=== PATIENT | male | born 1955 | race Caucasian/White ===

== ENCOUNTER 2017-03-15 04:35 | Inpatient (IN) ==
[2017-03-15] MEDS ORDERED: TICAGRELOR 90 MG TABLET ONE (05:02)
[2017-03-15] MEDS ORDERED: ONDANSETRON 4 MG/2 ML VIAL ONE (05:03)
[2017-03-15] MEDS ORDERED: MORPHINE 2 MG/1 ML SYRINGE IV STA (05:03)
[2017-03-15] MEDS ORDERED: ASPIRIN 325 MG TABLET PO STA (05:03)
[2017-03-15] MEDS ORDERED: HEPARIN 1,000 UNIT/1 ML VIAL IV STA (05:03)
[2017-03-15] MEDS ORDERED: HEPARIN 5,000 UNIT/1 ML VIAL ONE (05:03)
[2017-03-15] MEDS ORDERED: NITROGLYCERIN 2% OINT 1 INCH/GM PACK TOP ONE (05:03)
[2017-03-15] MEDS ORDERED: MORPHINE 2 MG/1 ML SYRINGE ONE (05:03)
[2017-03-15] MEDS ORDERED: NITROGLYCERIN 2% OINT 1 INCH/GM PACK TOP STA (05:03)
[2017-03-15] MEDS ORDERED: ASPIRIN 325 MG TABLET ONE (05:03)
[2017-03-15] MEDS ORDERED: TICAGRELOR 90 MG TABLET PO STA (05:05)
[2017-03-15 05:14] LABS: Basophils # 0.1 10*3/uL (0.0-0.2); Basophils % 0.9 % (0.0-0.8); Eosinophils # 0.2 10*3/uL (0.0-0.87); Eosinophils % 1.5 % (0.00-10.9); Hematocrit 46.6 VOL% (42.0-52.0); Hemoglobin 16.1 GM/DL (14.0-18.0); Immature Granulocytes % 0.5 %; Immature Granulocytes Absolute 0.05 #; Lymphocytes % 38.6 % (21.2-54.2); Mean Corpuscular HGB Conc 34.5 GM/DL (32-36); Mean Corpuscular Hemoglobin 30 PG (27-34); Mean Corpuscular Volume 88.1 FL (87-102); Mean Platelet Volume 11.1 FL (9.6-12.0); Monocytes % 9.3 % (1.7-12.7); Neutrophils # 5.1 10*3/uL (1.4-7.4); Neutrophils % 49.2 % (38.7-73.9); Platelet Count 228 T/CUMM (130-400); Red Blood Count 5.29 MC/CUMM (3.8-5.5); Red Cell Distribution Width 12.1 % (9.3-17.3); White Blood Count 10.4 T/CUMM (4-12)
[2017-03-15] MEDS ORDERED: METOPROLOL TARTRATE 5 MG/5 ML VIAL IV STA (05:21)
[2017-03-15] MEDS ORDERED: METOPROLOL TARTRATE 5 MG/5 ML VIAL IV ONE (05:22)
[2017-03-15] MEDS ORDERED: LIDOCAINE 1%/EPI INJ 20 ML VIAL ONE (05:24)
[2017-03-15] MEDS ORDERED: HEPARIN/NACL 0.9% 2 UNITS/ML 2,000 ML IV ONE (05:24)
[2017-03-15 05:27] LABS: PT Patient Result 10.1 SECS; Partial Thromboplastin Time 26.6 SECS (0-40)
[2017-03-15] MEDS ORDERED: fentaNYL 100 MCG/2 ML VIAL ONE (05:28)
[2017-03-15] MEDS ORDERED: MIDAZOLAM 2 MG/2 ML VIAL ONE (05:28)
[2017-03-15 05:48] LABS: Albumin 3.7 G/DL (3.4-5.0); Bilirubin,Total 0.5 MG/DL (0.2-1.0); Calcium 9.5 MG/DL (8.5-10.1); Osmolality,Calculated 283.1 MOS/KG (273-304); Potassium 3.9 MMOL/L (3.5-5.1); Total Protein 7.4 G/DL (6.4-8.3)
[2017-03-15] MEDS ORDERED: NITROGLYCERIN SL 0.4 MG TABLET SL PRN (06:21)
[2017-03-15] MEDS ORDERED: ONDANSETRON 4 MG/2 ML VIAL IV PRN (06:21)
[2017-03-15] MEDS ORDERED: ZALEPLON 5 MG CAPSULE PO PRN (06:21)
[2017-03-15] MEDS ORDERED: DEXTROSE 5% NACL 0.45% 1,000 ML IV SCH (06:30)
[2017-03-15] MEDS: PANTOPRAZOLE 40 MG TABLET PO SCH (08:54)
[2017-03-15] MEDS: CARVEDILOL 6.25 MG TABLET PO SCH ×2 (08:54→21:37)
[2017-03-15] MEDS: INSULIN LISPRO 100 UNIT/ML SUBCUT SCH ×4 (08:54→21:37)
[2017-03-15] MEDS: LOSARTAN 25 MG TABLET PO SCH (08:54)
[2017-03-15] MEDS: ASPIRIN EC 81 MG TABLET PO SCH (08:54)
[2017-03-15 09:47] LABS: CKMB % 6.5 %
[2017-03-15 09:49] LABS: Troponin I Only 5.35 NG/ML (0.00-0.045)
[2017-03-15] MEDS: HEPARIN DRIP 25,000 UNITS/500 ML PREMIX IV SCH (12:29)
[2017-03-15] MEDS ORDERED: ACETAMINOPHEN 325 MG TABLET PO PRN (14:34)
[2017-03-15] MEDS ORDERED: MAGNESIUM HYDROXIDE SUSP 30 ML UDCUP PO PRN (14:35)
[2017-03-15] MEDS ORDERED: LORazepam 0.5 MG TABLET PO PRN (14:35)
[2017-03-15] MEDS ORDERED: SIMETHICONE DROPS 40 MG/0.6 ML 30 ML BOTTLE PO PRN (14:37)
[2017-03-15] MEDS ORDERED: BISACODYL 5 MG TABLET PO PRN (14:37)
[2017-03-15] MEDS: ATORVASTATIN 80 MG TABLET PO SCH (21:37)
[2017-03-16 01:44] LABS: Calcium 8.3 MG/DL (8.5-10.1); Magnesium 1.7 MG/DL (1.8-2.4); Osmolality,Calculated 276.8 MOS/KG (273-304); Potassium 3.3 MMOL/L (3.5-5.1); Risk Ratio 5.9; VLDL CHOLESTEROL 67.8 MG/DL
[2017-03-16 02:11] LABS: Basophils # 0.1 10*3/uL (0.0-0.2); Basophils % 0.7 % (0.0-0.8); Eosinophils # 0.2 10*3/uL (0.0-0.87); Eosinophils % 1.5 % (0.00-10.9); Hematocrit 40.3 VOL% (42.0-52.0); Hemoglobin 14.2 GM/DL (14.0-18.0); Immature Granulocytes % 0.5 %; Immature Granulocytes Absolute 0.05 #; Lymphocytes # 2.4 10*3/uL (1.4-4.0); Lymphocytes % 24.1 % (21.2-54.2); Mean Corpuscular HGB Conc 35.2 GM/DL (32-36); Mean Corpuscular Hemoglobin 31 PG (27-34); Mean Platelet Volume 11.5 FL (9.6-12.0); Monocytes % 9.6 % (1.7-12.7); Neutrophils # 6.3 10*3/uL (1.4-7.4); Neutrophils % 63.6 % (38.7-73.9); Platelet Count 199 T/CUMM (130-400); Red Blood Count 4.58 MC/CUMM (3.8-5.5); Red Cell Distribution Width 12.4 % (9.3-17.3); White Blood Count 9.9 T/CUMM (4-12)
[2017-03-16] MEDS: HEPARIN DRIP 25,000 UNITS/500 ML PREMIX IV SCH ×3 (04:48→16:47)
[2017-03-16] MEDS ORDERED: DEXTROSE 50% 25 GM/50 ML VIAL IV PRN (07:11)
[2017-03-16] MEDS ORDERED: GLUCAGON 1 MG VIAL IM PRN (07:11)
[2017-03-16] MEDS ORDERED: SODIUM CHLORIDE 0.9% 1,000 ML IV SCH (07:30)
[2017-03-16] MEDS: INSULIN LISPRO 100 UNIT/ML SUBCUT SCH ×4 (08:50→21:31)
[2017-03-16] MEDS: CARVEDILOL 6.25 MG TABLET PO SCH ×2 (08:51→21:30)
[2017-03-16] MEDS: ASPIRIN EC 81 MG TABLET PO SCH (08:51)
[2017-03-16] MEDS: LOSARTAN 25 MG TABLET PO SCH (08:52)
[2017-03-16] MEDS: PANTOPRAZOLE 40 MG TABLET PO SCH (08:52)
[2017-03-16] MEDS: CHLORHEXIDINE 0.12% ORAL RINSE 60 ML BOTTLE SWISH/SPIT SCH ×2 (08:52→21:34)
[2017-03-16 09:56] LABS: Allen Test Positive
[2017-03-16 09:57] LABS: ABG Base Excess -2.3 MMOL/L (-2.5-2.5); ABG HCO3 21.3 MMOL/L (20-26); ABG Oxygen Saturation 98.1 % (95-100); ABG PCO2 33.9 MM HG (35-48); ABG PH 7.417 (7.35-7.45); ABG PO2 115.6 MM HG (80-95); ABG TCO2 22.4 MMOL/L (23-27)
[2017-03-16] MEDS ORDERED: MAGNESIUM SULF RIDER 4 GM in PREMIX 1 EACH IV PRN (11:18)
[2017-03-16] MEDS ORDERED: MAGNESIUM SULF RIDER 2 GM in PREMIX 1 EACH IV PRN (11:18)
[2017-03-16] MEDS: POTASSIUM CHLORIDE 20 MEQ TABLET PO PRN ×2 (16:48→21:41)
[2017-03-16] MEDS: ALPRAZolam 0.25 MG TABLET PO PRN (17:11)
[2017-03-16] MEDS: ATORVASTATIN 80 MG TABLET PO SCH (21:30)
[2017-03-17 01:51] LABS: Basophils # 0.1 10*3/uL (0.0-0.2); Basophils % 1.3 % (0.0-0.8); Eosinophils # 0.2 10*3/uL (0.0-0.87); Eosinophils % 2.4 % (0.00-10.9); Hematocrit 42.8 VOL% (42.0-52.0); Hemoglobin 14.5 GM/DL (14.0-18.0); Immature Granulocytes % 0.4 %; Immature Granulocytes Absolute 0.03 #; Lymphocytes # 2.7 10*3/uL (1.4-4.0); Lymphocytes % 40.4 % (21.2-54.2); Mean Corpuscular HGB Conc 33.9 GM/DL (32-36); Mean Corpuscular Hemoglobin 31 PG (27-34); Mean Corpuscular Volume 91.3 FL (87-102); Mean Platelet Volume 11.1 FL (9.6-12.0); Monocytes # 0.6 10*3/uL (0.11-0.8); Monocytes % 9.3 % (1.7-12.7); Neutrophils # 3.1 10*3/uL (1.4-7.4); Neutrophils % 46.2 % (38.7-73.9); Platelet Count 184 T/CUMM (130-400); Red Blood Count 4.69 MC/CUMM (3.8-5.5); Red Cell Distribution Width 12.4 % (9.3-17.3); White Blood Count 6.8 T/CUMM (4-12)
[2017-03-17 02:23] LABS: Calcium 8.3 MG/DL (8.5-10.1); Magnesium 2.5 MG/DL (1.8-2.4); Osmolality,Calculated 282.4 MOS/KG (273-304); Potassium 3.7 MMOL/L (3.5-5.1)
[2017-03-17] MEDS: ALPRAZolam 0.25 MG TABLET PO PRN (08:23)
[2017-03-17] MEDS: LOSARTAN 25 MG TABLET PO SCH (08:23)
[2017-03-17] MEDS: ASPIRIN EC 81 MG TABLET PO SCH (08:23)
[2017-03-17] MEDS: PANTOPRAZOLE 40 MG TABLET PO SCH (08:23)
[2017-03-17] MEDS: INSULIN LISPRO 100 UNIT/ML SUBCUT SCH ×4 (08:25→21:08)
[2017-03-17] MEDS: CARVEDILOL 12.5 MG TABLET PO SCH ×2 (08:27→21:07)
[2017-03-17] MEDS: CHLORHEXIDINE 0.12% ORAL RINSE 60 ML BOTTLE SWISH/SPIT SCH ×2 (08:29→21:09)
[2017-03-17] MEDS: HEPARIN DRIP 25,000 UNITS/500 ML PREMIX IV SCH ×2 (09:30→15:56)
[2017-03-17] MEDS: ATORVASTATIN 80 MG TABLET PO SCH (21:07)
[2017-03-18] MEDS: diphenhydrAMINE CAP 25 MG CAPSULE PO PRN ×2 (01:21→22:05)
[2017-03-18] MEDS: HEPARIN DRIP 25,000 UNITS/500 ML PREMIX IV SCH ×2 (01:23→12:06)
[2017-03-18] MEDS: LOSARTAN 25 MG TABLET PO SCH (08:12)
[2017-03-18] MEDS: INSULIN LISPRO 100 UNIT/ML SUBCUT SCH ×4 (08:13→21:36)
[2017-03-18] MEDS: ASPIRIN EC 81 MG TABLET PO SCH (08:13)
[2017-03-18] MEDS: CARVEDILOL 12.5 MG TABLET PO SCH ×2 (08:13→21:36)
[2017-03-18] MEDS: PANTOPRAZOLE 40 MG TABLET PO SCH (08:13)
[2017-03-18] MEDS: CHLORHEXIDINE 0.12% ORAL RINSE 60 ML BOTTLE SWISH/SPIT SCH ×2 (08:15→21:37)
[2017-03-18] MEDS ORDERED: PNEUMOCOCCAL VACCINE (23 VALENT) 0.5 ML VIAL IM ONE (09:00)
[2017-03-18] MEDS ORDERED: INFLUENZA VIRUS VACCINE 0.5 ML SYRINGE IM ONE (09:00)
[2017-03-18] MEDS: ATORVASTATIN 80 MG TABLET PO SCH (21:36)
[2017-03-19] MEDS: INSULIN LISPRO 100 UNIT/ML SUBCUT SCH ×4 (09:15→21:38)
[2017-03-19] MEDS: CARVEDILOL 12.5 MG TABLET PO SCH ×2 (09:16→21:38)
[2017-03-19] MEDS: PANTOPRAZOLE 40 MG TABLET PO SCH (09:17)
[2017-03-19] MEDS: LOSARTAN 25 MG TABLET PO SCH (09:17)
[2017-03-19] MEDS: ASPIRIN EC 81 MG TABLET PO SCH (09:18)
[2017-03-19] MEDS: CHLORHEXIDINE 0.12% ORAL RINSE 60 ML BOTTLE SWISH/SPIT SCH ×2 (09:19→21:39)
[2017-03-19] MEDS: HEPARIN DRIP 25,000 UNITS/500 ML PREMIX IV SCH ×2 (10:42→13:51)
[2017-03-19] MEDS: CHLORHEXIDINE 4% SOLN 118 ML BOTTLE TOP SCH ×3 (10:57→21:39)
[2017-03-19] MEDS ORDERED: METOPROLOL TARTRATE 5 MG/5 ML VIAL IV ONE ×2 (18:33→18:34)
[2017-03-19] MEDS ORDERED: MORPHINE 2 MG/1 ML SYRINGE ONE (18:34)
[2017-03-19] MEDS ORDERED: MORPHINE 2 MG/1 ML SYRINGE IV PRN (18:34)
[2017-03-19] MEDS: ATORVASTATIN 80 MG TABLET PO SCH (21:38)
[2017-03-20 03:34] LABS: ABG Base Excess -1.2 MMOL/L (-2.5-2.5); ABG HCO3 23.4 MMOL/L (20-26); ABG Oxygen Saturation 97.8 % (95-100); ABG PCO2 28.9 MM HG (35-48); ABG PH 7.473 (7.35-7.45); ABG PO2 88.5 MM HG (80-95); ABG TCO2 18.2 MMOL/L (23-27); Allen Test Positive; Pt O2 Delivery Device Room Air
[2017-03-20] MEDS ORDERED: PAPAVERINE 60 MG/2 ML VIAL ONE (05:22)
[2017-03-20] MEDS ORDERED: VANCOMYCIN 1,000 MG VIAL ONE (05:22)
[2017-03-20 05:40] LABS: Basophils # 0.1 10*3/uL (0.0-0.2); Basophils % 1.1 % (0.0-0.8); Eosinophils # 0.2 10*3/uL (0.0-0.87); Hematocrit 41.6 VOL% (42.0-52.0); Hemoglobin 14.2 GM/DL (14.0-18.0); Immature Granulocytes % 0.6 %; Immature Granulocytes Absolute 0.05 #; Lymphocytes # 2.3 10*3/uL (1.4-4.0); Lymphocytes % 28.1 % (21.2-54.2); Mean Corpuscular HGB Conc 34.1 GM/DL (32-36); Mean Corpuscular Hemoglobin 30 PG (27-34); Mean Corpuscular Volume 88.9 FL (87-102); Mean Platelet Volume 11.3 FL (9.6-12.0); Monocytes # 0.7 10*3/uL (0.11-0.8); Monocytes % 8.2 % (1.7-12.7); Neutrophils # 4.9 10*3/uL (1.4-7.4); Platelet Count 219 T/CUMM (130-400); Red Blood Count 4.68 MC/CUMM (3.8-5.5); Red Cell Distribution Width 12.6 % (9.3-17.3); White Blood Count 8.1 T/CUMM (4-12)
[2017-03-20] MEDS ORDERED: DIAZEPAM 5 MG TABLET PO ONE (06:00)
[2017-03-20] MEDS ORDERED: FAMOTIDINE 20 MG TABLET PO ONE (06:00)
[2017-03-20] MEDS ORDERED: CEFUROXIME INJ 1,500 MG in SYRINGE 1 EACH IV ONE (06:00)
[2017-03-20 06:11] LABS: Calcium 8.7 MG/DL (8.5-10.1); Magnesium 1.9 MG/DL (1.8-2.4); Potassium 3.9 MMOL/L (3.5-5.1)
[2017-03-20] MEDS ORDERED: SODIUM CHLORIDE 0.9% 1,000 ML IV SCH (07:30)
[2017-03-20 07:36] LABS: ABG HCO3 22.8 MMOL/L (20-26); ABG PCO2 29.6 MM HG (35-48); ABG PH 7.454 (7.35-7.45); ABG TCO2 17.9 MMOL/L (23-27); Glucose Heart Surgery 253 MG/DL (74-106); Hematocrit Heart Surgery 41.3 PERCENT (42-52); Hemoglobin Heart Surgery 13.4 G/DL (14.0-18.0); Ionized Calcium Arterial 1.13 MMOL/L (1.21-1.46); PCO2 Patient Temp Arterial 29.6 MMHG; PH Patient Temp Arterial 7.454; Patient Temperature 37 CELCIUS; Potassium Heart/CVR 3.8 MMOL/L (3.5-5.1); Sodium Heart/CVR 135 MMOL/L (135-145)
[2017-03-20] MEDS ORDERED: NITROPRUSSIDE 50 MG/2 ML VIAL ONE (08:05)
[2017-03-20] MEDS ORDERED: PHENYLEPHRINE DRIP 40 MG/250 ML PREMIX IV ONE (08:05)
[2017-03-20] MEDS ORDERED: EPINEPHrine 1 MG/10 ML SYRINGE ONE (08:05)
[2017-03-20] MEDS ORDERED: ALBUMIN 5% 12.5 GM/250 ML VIAL IV ONE (08:05)
[2017-03-20] MEDS ORDERED: SODIUM BICARBONATE 50 MEQ/50 ML SYRINGE IV ONE ×2 (08:05→10:58)
[2017-03-20] MEDS ORDERED: CALCIUM CHLORIDE 1,000 MG/10 ML SYRINGE IV ONE (08:05)
[2017-03-20] MEDS ORDERED: LIDOCAINE 100 MG/5 ML SYRINGE ONE (08:06)
[2017-03-20] MEDS ORDERED: ATROPINE 1 MG/1 ML VIAL ONE (08:06)
[2017-03-20] MEDS: CHLORHEXIDINE 0.12% ORAL RINSE 60 ML BOTTLE SWISH/SPIT SCH ×2 (09:02→21:23)
[2017-03-20] MEDS: ASPIRIN EC 81 MG TABLET PO SCH (09:02)
[2017-03-20] MEDS: PANTOPRAZOLE 40 MG TABLET PO SCH (09:02)
[2017-03-20] MEDS: INSULIN LISPRO 100 UNIT/ML SUBCUT SCH ×2 (09:02→13:55)
[2017-03-20] MEDS: LOSARTAN 25 MG TABLET PO SCH (09:02)
[2017-03-20] MEDS: CARVEDILOL 12.5 MG TABLET PO SCH (09:02)
[2017-03-20 09:33] LABS: Hematocrit Heart Surgery 28.3 PERCENT (42-52); Hemoglobin Heart Surgery 9.1 G/DL (14.0-18.0); PCO2 Patient Temp Venous 35.3 MM HG; PH Patient Temp Venous 7.45; PO2 Patient Temp Venous 37.4 MM HG; Potassium Heart/CVR 4.5 MMOL/L (3.5-5.1); VBG Base Excess 0.9 MEQ/L (0-4); VBG HCO3 24.9 MEQ/L (24-28); VBG Oxygen Saturation 78.7 %; VBG PCO2 38.9 MMHG (41-51); VBG PH 7.421
[2017-03-20 10:04] LABS: Hemoglobin Heart Surgery 10.2 G/DL (14.0-18.0); PCO2 Patient Temp Venous 32.6 MM HG; PH Patient Temp Venous 7.458; PO2 Patient Temp Venous 38.8 MM HG; Potassium Heart/CVR 3.8 MMOL/L (3.5-5.1); VBG Oxygen Saturation 83.2 %; VBG PCO2 35.6 MMHG (41-51); VBG PH 7.428; VBG PO2 44.7 MMHG (17-40)
[2017-03-20] MEDS ORDERED: MAGNESIUM SULFATE 1 GM/2 ML VIAL ONE (10:58)
[2017-03-20] MEDS ORDERED: PROTAMINE SULFATE 250 MG/25 ML VIAL IV ONE (10:58)
[2017-03-20] MEDS ORDERED: ALBUMIN 25% 25 GM/100 ML VIAL IV ONE (10:58)
[2017-03-20] MEDS ORDERED: PHENYLEPHRINE DRIP 20 MG/250 ML PREMIX IV ONE (10:58)
[2017-03-20] MEDS ORDERED: DEXTROSE 5% KCL 20 MEQ 20 MEQ/1,000 ML BAG IV ONE (10:58)
[2017-03-20] MEDS ORDERED: MANNITOL 12.5 GM/50 ML VIAL IV ONE (10:59)
[2017-03-20] MEDS ORDERED: POTASSIUM CHLORIDE 20 MEQ/10 ML VIAL ONE (10:59)
[2017-03-20] MEDS ORDERED: HEPARIN 10,000 UNIT/10 ML VIAL ONE (10:59)
[2017-03-20] MEDS ORDERED: PROTAMINE SULFATE 50 MG/5 ML VIAL IV ONE (10:59)
[2017-03-20] MEDS ORDERED: methylPREDNISolone SOD SUC 1,000 MG/8 ML VIAL ONE (10:59)
[2017-03-20] MEDS ORDERED: FUROSEMIDE 20 MG/2 ML VIAL ONE (10:59)
[2017-03-20 11:16] LABS: ABG Base Excess -3.1 MMOL/L (-2.5-2.5); ABG HCO3 21.8 MMOL/L (20-26); ABG PCO2 33.5 MM HG (35-48); ABG PH 7.402 (7.35-7.45); ABG TCO2 18.6 MMOL/L (23-27); Glucose Heart Surgery 286 MG/DL (74-106); Hemoglobin Heart Surgery 11.7 G/DL (14.0-18.0); Ionized Calcium Arterial 1.62 MMOL/L (1.21-1.46); PCO2 Patient Temp Arterial 33.5 MMHG; PH Patient Temp Arterial 7.402; Patient Temperature 37 CELCIUS; Potassium Heart/CVR 3.7 MMOL/L (3.5-5.1); Sodium Heart/CVR 132 MMOL/L (135-145)
[2017-03-20] MEDS ORDERED: CALCIUM CHLORIDE 1,000 MG/10 ML VIAL IV ONE (11:46)
[2017-03-20] MEDS ORDERED: HEPARIN/NACL 0.9% 2 UNITS/ML 1,000 ML IV ONE (11:46)
[2017-03-20] MEDS ORDERED: SEVOFLURANE 1 UNIT/15 MINUTE INH ONE (11:47)
[2017-03-20] MEDS ORDERED: MIDAZOLAM 10 MG/2 ML VIAL ONE (11:47)
[2017-03-20] MEDS ORDERED: SUFentanil 250 MCG/5 ML AMP ONE (11:47)
[2017-03-20] MEDS ORDERED: NITROGLYCERIN DRIP 50 MG/250 ML BOTTLE IV ONE (11:48)
[2017-03-20] MEDS ORDERED: LACTATED RINGERS 1,000 ML IV ONE (11:48)
[2017-03-20] MEDS ORDERED: VECURONIUM 10 MG VIAL IV ONE (11:48)
[2017-03-20] MEDS ORDERED: SODIUM CHLORIDE 0.9% 100 ML IV ONE (11:48)
[2017-03-20] MEDS ORDERED: SODIUM CHLORIDE 0.9% 250 ML IV ONE (11:48)
[2017-03-20] MEDS ORDERED: AMINOCAPROIC ACID 5,000 MG/20 ML VIAL IV ONE (11:48)
[2017-03-20] MEDS ORDERED: PHENYLEPHRINE 50 MG/5 ML VIAL ONE (11:48)
[2017-03-20] MEDS ORDERED: SODIUM CHLORIDE 0.9% 1,000 ML IV ONE (11:48)
[2017-03-20] MEDS: LACTATED RINGERS 1,000 ML IV PRN ×4 (11:49→14:14)
[2017-03-20] MEDS ORDERED: MORPHINE 2 MG/1 ML SYRINGE IV PRN (11:50)
[2017-03-20] MEDS ORDERED: INSULIN REGULAR 100 UNIT/ML IV ONE (11:50)
[2017-03-20] MEDS ORDERED: NITROPRUSSIDE 100 MG in DEXTROSE 5% 250 ML IV PRN (11:50)
[2017-03-20] MEDS ORDERED: PHENYLEPHRINE DRIP 40 MG/250 ML PREMIX IV PRN (11:50)
[2017-03-20] MEDS ORDERED: MAGNESIUM SULF RIDER 4 GM in PREMIX 1 EACH IV PRN (11:50)
[2017-03-20] MEDS ORDERED: MAGNESIUM SULF RIDER 2 GM in PREMIX 1 EACH IV PRN (11:50)
[2017-03-20] MEDS ORDERED: MIDAZOLAM 2 MG/2 ML VIAL IV PRN (11:50)
[2017-03-20] MEDS ORDERED: LACTATED RINGERS 250 ML IV PRN (11:50)
[2017-03-20] MEDS ORDERED: POTASSIUM CHLORIDE RIDER 10 MEQ in PREMIX 1 EACH IV PRN (11:50)
[2017-03-20] MEDS ORDERED: ONDANSETRON 4 MG/2 ML VIAL IV PRN (11:50)
[2017-03-20] MEDS ORDERED: VECURONIUM 10 MG VIAL IV PRN ×2 (11:50)
[2017-03-20] MEDS ORDERED: MIDAZOLAM 10 MG/2 ML VIAL IV PRN (11:50)
[2017-03-20] MEDS ORDERED: DEXTROSE 50% 25 GM/50 ML VIAL IV PRN ×2 (11:50)
[2017-03-20] MEDS ORDERED: CALCIUM CHLORIDE 1,000 MG/10 ML SYRINGE IV PRN (11:50)
[2017-03-20] MEDS ORDERED: MORPHINE 10 MG/1 ML VIAL IV PRN (11:50)
[2017-03-20] MEDS ORDERED: ACETAMINOPHEN 650 MG SUPP RECTAL PRN (11:50)
[2017-03-20] MEDS ORDERED: SODIUM CHLORIDE 0.45% 1,000 ML IV SCH ×2 (12:00)
[2017-03-20 12:13] LABS: ABG Base Excess -3.6 MMOL/L (-2.5-2.5); ABG HCO3 21.4 MMOL/L (20-26); ABG Oxygen Saturation 98.4 % (95-100); ABG PCO2 34.9 MM HG (35-48); ABG PH 7.384 (7.35-7.45); ABG TCO2 18.7 MMOL/L (23-27); Glucose Heart Surgery 262 MG/DL (74-106); Hematocrit Heart Surgery 34.5 PERCENT (42-52); Hemoglobin Heart Surgery 11.2 G/DL (14.0-18.0); Potassium Heart/CVR 3.3 MMOL/L (3.5-5.1)
[2017-03-20 12:16] LABS: Hematocrit 32.5 VOL% (42.0-52.0); Lymphocytes # 1.1 10*3/uL (1.4-4.0); Mean Corpuscular HGB Conc 34.2 GM/DL (32-36)
[2017-03-20] MEDS: POTASSIUM CHLORIDE RIDER 20 MEQ in PREMIX 1 EACH IV PRN ×6 (12:22→18:12)
[2017-03-20 12:24] LABS: Basophils # 0.1 10*3/uL (0.0-0.2); Basophils % 0.7 % (0.0-0.8); Eosinophils # 0.1 10*3/uL (0.0-0.87); Eosinophils % 0.9 % (0.00-10.9); INR 1.1; Immature Granulocytes % 0.7 %; Immature Granulocytes Absolute 0.09 #; Lymphocytes % 9.4 % (21.2-54.2); Mean Corpuscular Hemoglobin 31 PG (27-34); Mean Corpuscular Volume 90.3 FL (87-102); Mean Platelet Volume 11.3 FL (9.6-12.0); Monocytes # 0.7 10*3/uL (0.11-0.8); Monocytes % 5.9 % (1.7-12.7); Neutrophils % 82.4 % (38.7-73.9); PT Patient Result 11.4 SECS; Red Cell Distribution Width 12.7 % (9.3-17.3)
[2017-03-20 12:26] LABS: Hemoglobin 11.1 GM/DL (14.0-18.0); Platelet Count 185 T/CUMM (130-400); White Blood Count 12.1 T/CUMM (4-12)
[2017-03-20] MEDS: ALBUMIN 5% 12.5 GM in PREMIX 1 EACH IV PRN ×3 (12:34→15:21)
[2017-03-20 12:47] LABS: Albumin 2.7 G/DL (3.4-5.0); Bilirubin,Total 0.6 MG/DL (0.2-1.0); Calcium 8.8 MG/DL (8.5-10.1); Magnesium 1.8 MG/DL (1.8-2.4); Osmolality,Calculated 284.7 MOS/KG (273-304); Potassium 3.5 MMOL/L (3.5-5.1); Total Protein 5.2 G/DL (6.4-8.3)
[2017-03-20 12:52] LABS: Troponin I Only 3.39 NG/ML (0.00-0.045)
[2017-03-20] MEDS: INSULIN REGULAR DRIP 100 ML IV SCH ×2 (13:24→22:30)
[2017-03-20 14:05] LABS: ABG Base Excess -2.2 MMOL/L (-2.5-2.5); ABG HCO3 21.6 MMOL/L (20-26); ABG Oxygen Saturation 97.8 % (95-100); ABG PCO2 33.8 MM HG (35-48); ABG PH 7.424 (7.35-7.45); ABG PO2 116.9 MM HG (80-95); ABG TCO2 22.7 MMOL/L (23-27); Glucose Heart Surgery 225 MG/DL (74-106); Hemoglobin Heart Surgery 11.1 G/DL (14.0-18.0); Potassium Heart/CVR 3.5 MMOL/L (3.5-5.1)
[2017-03-20] MEDS: KETOROLAC 30 MG/1 ML VIAL IV SCH ×2 (14:05→18:16)
[2017-03-20 16:07] LABS: ABG Base Excess -2.3 MMOL/L (-2.5-2.5); ABG HCO3 22.5 MMOL/L (20-26); ABG Oxygen Saturation 96.8 % (95-100); ABG PCO2 33.9 MM HG (35-48); ABG PH 7.413 (7.35-7.45); ABG PO2 83.6 MM HG (80-95); ABG TCO2 19.6 MMOL/L (23-27); Glucose Heart Surgery 208 MG/DL (74-106); Hematocrit Heart Surgery 31.7 PERCENT (42-52); Hemoglobin Heart Surgery 10.2 G/DL (14.0-18.0); Potassium Heart/CVR 3.7 MMOL/L (3.5-5.1)
[2017-03-20] MEDS: INSULIN REGULAR 100 UNIT/ML IV PRN ×2 (17:10→19:03)
[2017-03-20 18:05] LABS: ABG Base Excess -3.6 MMOL/L (-2.5-2.5); ABG HCO3 21.5 MMOL/L (20-26); ABG Oxygen Saturation 96.2 % (95-100); ABG PO2 89.5 MM HG (80-95); ABG TCO2 22.7 MMOL/L (23-27); Glucose Heart Surgery 174 MG/DL (74-106); Hemoglobin Heart Surgery 11.2 G/DL (14.0-18.0); Potassium Heart/CVR 4.2 MMOL/L (3.5-5.1)
[2017-03-20] MEDS: CEFUROXIME INJ 1,500 MG in SYRINGE 1 EACH IV SCH (19:17)
[2017-03-20] MEDS ORDERED: ROSUVASTATIN 20 MG TABLET PO SCH (21:00)
[2017-03-20] MEDS ORDERED: FUROSEMIDE 40 MG/4 ML VIAL IV ONE (21:07)
[2017-03-20 21:46] LABS: CKMB % 4.7 %; Troponin I Only 3.48 NG/ML (0.00-0.045)
[2017-03-21] MEDS: KETOROLAC 30 MG/1 ML VIAL IV SCH ×5 (00:47→21:56)
[2017-03-21] MEDS: LACTATED RINGERS 1,000 ML IV PRN (01:47)
[2017-03-21] MEDS: ALBUMIN 5% 12.5 GM in PREMIX 1 EACH IV PRN ×3 (01:55→06:30)
[2017-03-21 02:30] LABS: ABG Base Excess -2.7 MMOL/L (-2.5-2.5); ABG HCO3 22.2 MMOL/L (20-26); ABG Oxygen Saturation 99.3 % (95-100); ABG PCO2 33.3 MM HG (35-48); ABG PH 7.413 (7.35-7.45); ABG TCO2 19.3 MMOL/L (23-27); Glucose Heart Surgery 125 MG/DL (74-106); Hematocrit Heart Surgery 30.5 PERCENT (42-52); Hemoglobin Heart Surgery 9.9 G/DL (14.0-18.0); Potassium Heart/CVR 3.8 MMOL/L (3.5-5.1)
[2017-03-21] MEDS: POTASSIUM CHLORIDE RIDER 20 MEQ in PREMIX 1 EACH IV PRN ×2 (02:45→03:56)
[2017-03-21 04:14] LABS: ABG HCO3 21.9 MMOL/L (20-26); ABG PCO2 31.7 MM HG (35-48); ABG PH 7.422 (7.35-7.45); ABG PO2 95.1 MM HG (80-95); ABG TCO2 18.8 MMOL/L (23-27); Glucose Heart Surgery 147 MG/DL (74-106); Hematocrit Heart Surgery 30.8 PERCENT (42-52); Potassium Heart/CVR 4.2 MMOL/L (3.5-5.1)
[2017-03-21 04:24] LABS: Basophils % 0.1 % (0.0-0.8); Hematocrit 30.2 VOL% (42.0-52.0); Hemoglobin 10.1 GM/DL (14.0-18.0); Immature Granulocytes % 0.5 %; Immature Granulocytes Absolute 0.08 #; Lymphocytes % 6.6 % (21.2-54.2); Mean Corpuscular HGB Conc 33.4 GM/DL (32-36); Mean Corpuscular Hemoglobin 31 PG (27-34); Mean Corpuscular Volume 91.2 FL (87-102); Mean Platelet Volume 11.7 FL (9.6-12.0); Monocytes # 0.8 10*3/uL (0.11-0.8); Monocytes % 5.4 % (1.7-12.7); Neutrophils # 13.5 10*3/uL (1.4-7.4); Neutrophils % 87.4 % (38.7-73.9); Platelet Count 155 T/CUMM (130-400); Red Blood Count 3.31 MC/CUMM (3.8-5.5); White Blood Count 15.5 T/CUMM (4-12)
[2017-03-21 04:54] LABS: Albumin 3.4 G/DL (3.4-5.0); Bilirubin,Direct 0.22 MG/DL (0.0-0.20); Bilirubin,Total 0.7 MG/DL (0.2-1.0); CKMB % 5.8 %; Calcium 8.3 MG/DL (8.5-10.1); Magnesium 1.8 MG/DL (1.8-2.4); Osmolality,Calculated 281.4 MOS/KG (273-304); Potassium 4.5 MMOL/L (3.5-5.1); Total Protein 5.9 G/DL (6.4-8.3)
[2017-03-21 04:58] LABS: Troponin I Only 6.66 NG/ML (0.00-0.045)
[2017-03-21] MEDS ORDERED: FUROSEMIDE 40 MG/4 ML VIAL IV ONE (06:06)
[2017-03-21] MEDS: CEFUROXIME INJ 1,500 MG in SYRINGE 1 EACH IV SCH (06:51)
[2017-03-21 06:56] LABS: ABG Base Excess -4.1 MMOL/L (-2.5-2.5); ABG Oxygen Saturation 98.6 % (95-100); ABG PCO2 21.6 MM HG (35-48); ABG PH 7.517 (7.35-7.45); ABG PO2 90.5 MM HG (80-95); ABG TCO2 15.9 MMOL/L (23-27); Glucose Heart Surgery 162 MG/DL (74-106); Hematocrit Heart Surgery 29.9 PERCENT (42-52); Hemoglobin Heart Surgery 9.7 G/DL (14.0-18.0); Potassium Heart/CVR 3.9 MMOL/L (3.5-5.1)
[2017-03-21] MEDS: INSULIN REGULAR 100 UNIT/ML IV PRN (07:16)
[2017-03-21] MEDS ORDERED: ALPRAZolam 0.25 MG TABLET PO PRN (08:44)
[2017-03-21] MEDS ORDERED: CARVEDILOL 12.5 MG TABLET PO SCH (09:00)
[2017-03-21] MEDS ORDERED: ALUMINUM/MAGNES/SIMETH MAX STR 30 ML UDCUP PO PRN (10:19)
[2017-03-21] MEDS ORDERED: MAGNESIUM SULF RIDER 2 GM in PREMIX 1 EACH IV PRN (10:19)
[2017-03-21] MEDS ORDERED: DEXTROSE 50% 25 GM/50 ML VIAL IV PRN ×2 (10:19)
[2017-03-21] MEDS ORDERED: GLUCAGON 1 MG VIAL IM PRN ×2 (10:19)
[2017-03-21] MEDS ORDERED: MAGNESIUM HYDROXIDE SUSP 30 ML UDCUP PO PRN (10:19)
[2017-03-21] MEDS ORDERED: MAGNESIUM SULF RIDER 4 GM in PREMIX 1 EACH IV PRN (10:19)
[2017-03-21] MEDS ORDERED: ACETAMINOPHEN 325 MG TABLET PO PRN (10:19)
[2017-03-21] MEDS ORDERED: SODIUM CHLOR 0.45% KCL 20 MEQ 20 MEQ/1,000 ML BAG IV SCH (10:19)
[2017-03-21] MEDS ORDERED: ONDANSETRON 4 MG/2 ML VIAL IV PRN (10:19)
[2017-03-21] MEDS ORDERED: POTASSIUM CHLORIDE 20 MEQ TABLET PO PRN (10:19)
[2017-03-21] MEDS ORDERED: ZALEPLON 5 MG CAPSULE PO PRN (10:19)
[2017-03-21] MEDS: CHLORHEXIDINE 0.12% ORAL RINSE 60 ML BOTTLE SWISH/SPIT SCH ×3 (10:40→21:57)
[2017-03-21] MEDS: ASPIRIN EC 325 MG TABLET PO SCH (10:41)
[2017-03-21] MEDS: PANTOPRAZOLE 40 MG TABLET PO SCH (10:41)
[2017-03-21] MEDS: DOCUSATE SODIUM 100 MG CAPSULE PO SCH (10:41)
[2017-03-21] MEDS: metFORMIN 500 MG TABLET PO SCH ×2 (10:42→16:08)
[2017-03-21] MEDS: FERROUS SULFATE 325 MG TABLET PO SCH (10:42)
[2017-03-21] MEDS: INSULIN REGULAR 100 UNIT/ML SUBCUT SCH ×3 (12:30→21:57)
[2017-03-21] MEDS: LOSARTAN 25 MG TABLET PO SCH (13:04)
[2017-03-21] MEDS: oxyCODONE/ACETAMINOPHEN 5-325 MG TABLET PO PRN (16:08)
[2017-03-21] MEDS ORDERED: guaiFENesin/DM ER 600-30 MG TABLET PO PRN (18:21)
[2017-03-21] MEDS ORDERED: diphenhydrAMINE CAP 25 MG CAPSULE PO PRN (18:21)
[2017-03-21] MEDS: ATORVASTATIN 80 MG TABLET PO SCH (21:56)
[2017-03-22] MEDS: INSULIN REGULAR 100 UNIT/ML SUBCUT SCH ×6 (00:12→21:10)
[2017-03-22] MEDS: KETOROLAC 30 MG/1 ML VIAL IV SCH (04:17)
[2017-03-22 05:36] LABS: Basophils % 0.1 % (0.0-0.8); Hematocrit 30.3 VOL% (42.0-52.0); Immature Granulocytes % 0.5 %; Immature Granulocytes Absolute 0.07 #; Lymphocytes # 1.3 10*3/uL (1.4-4.0); Lymphocytes % 8.6 % (21.2-54.2); Mean Corpuscular Hemoglobin 31 PG (27-34); Mean Corpuscular Volume 92.7 FL (87-102); Mean Platelet Volume 12.3 FL (9.6-12.0); Monocytes # 1.3 10*3/uL (0.11-0.8); Monocytes % 8.6 % (1.7-12.7); NRBC # 0.02 10*3/uL; Neutrophils # 12.6 10*3/uL (1.4-7.4); Neutrophils % 82.2 % (38.7-73.9); Platelet Count 147 T/CUMM (130-400); Red Blood Count 3.27 MC/CUMM (3.8-5.5); White Blood Count 15.3 T/CUMM (4-12)
[2017-03-22] MEDS ORDERED: FUROSEMIDE 40 MG/4 ML VIAL IV ONE (06:00)
[2017-03-22 06:22] LABS: Albumin 3.4 G/DL (3.4-5.0); Bilirubin,Direct 0.13 MG/DL (0.0-0.20); Bilirubin,Indirect 0.4 MG/DL (0.0-1.0); Bilirubin,Total 0.5 MG/DL (0.2-1.0); CKMB % 3.2 %; Calcium 8.3 MG/DL (8.5-10.1); Magnesium 1.9 MG/DL (1.8-2.4); Osmolality,Calculated 288.1 MOS/KG (273-304); Potassium 4.3 MMOL/L (3.5-5.1); Total Protein 6.1 G/DL (6.4-8.3)
[2017-03-22 06:28] LABS: Troponin I Only 4.39 NG/ML (0.00-0.045)
[2017-03-22] MEDS ORDERED: INFLUENZA VIRUS VACCINE 0.5 ML SYRINGE IM ONE (09:00)
[2017-03-22] MEDS ORDERED: PNEUMOCOCCAL VACCINE (23 VALENT) 0.5 ML VIAL IM ONE (09:00)
[2017-03-22] MEDS: DOCUSATE SODIUM 100 MG CAPSULE PO SCH (09:08)
[2017-03-22] MEDS: ASPIRIN EC 325 MG TABLET PO SCH (09:08)
[2017-03-22] MEDS: PANTOPRAZOLE 40 MG TABLET PO SCH (09:08)
[2017-03-22] MEDS: LOSARTAN 25 MG TABLET PO SCH (09:08)
[2017-03-22] MEDS: CHLORHEXIDINE 0.12% ORAL RINSE 60 ML BOTTLE SWISH/SPIT SCH ×2 (09:09→21:11)
[2017-03-22] MEDS: metFORMIN 500 MG TABLET PO SCH ×2 (09:09→17:00)
[2017-03-22] MEDS: FERROUS SULFATE 325 MG TABLET PO SCH (09:09)
[2017-03-22] MEDS: oxyCODONE/ACETAMINOPHEN 5-325 MG TABLET PO PRN ×2 (12:47→21:10)
[2017-03-22] MEDS: METOPROLOL SUCCINATE XL 25 MG TABLET PO SCH (18:15)
[2017-03-22] MEDS ORDERED: LACTULOSE 20 GM/30 ML UDCUP PO PRN (18:22)
[2017-03-22] MEDS: ATORVASTATIN 80 MG TABLET PO SCH (21:10)
[2017-03-23] MEDS: INSULIN REGULAR 100 UNIT/ML SUBCUT SCH ×7 (02:15→21:35)
[2017-03-23 04:58] LABS: Basophils % 0.1 % (0.0-0.8); Eosinophils % 0.2 % (0.00-10.9); Hematocrit 31.5 VOL% (42.0-52.0); Hemoglobin 10.4 GM/DL (14.0-18.0); Immature Granulocytes Absolute 0.13 #; Lymphocytes # 2.6 10*3/uL (1.4-4.0); Lymphocytes % 20.2 % (21.2-54.2); Mean Corpuscular Hemoglobin 31 PG (27-34); Mean Corpuscular Volume 92.4 FL (87-102); Monocytes # 1.3 10*3/uL (0.11-0.8); Monocytes % 9.8 % (1.7-12.7); Neutrophils # 8.8 10*3/uL (1.4-7.4); Neutrophils % 68.7 % (38.7-73.9); Platelet Count 175 T/CUMM (130-400); Red Blood Count 3.41 MC/CUMM (3.8-5.5); Red Cell Distribution Width 13.1 % (9.3-17.3); White Blood Count 12.8 T/CUMM (4-12)
[2017-03-23 05:45] LABS: Alanine Aminotransferase 40 U/L (16-61); Albumin 3.3 G/DL (3.4-5.0); Alkaline Phosphatase 53 U/L (45-117); Aspartate Amino Transferase 33 U/L (0-37); Bilirubin,Indirect 0.4 MG/DL (0.0-1.0); Blood Urea Nitrogen 35 MG/DL (7-18); Calcium 8.4 MG/DL (8.5-10.1); Glucose 214 MG/DL (74-106); Magnesium 2.1 MG/DL (1.8-2.4); Osmolality,Calculated 288.7 MOS/KG (273-304); Potassium 3.8 MMOL/L (3.5-5.1); Sodium 138 MMOL/L (136-145); Total Protein 6.2 G/DL (6.4-8.3)
[2017-03-23] MEDS: oxyCODONE/ACETAMINOPHEN 5-325 MG TABLET PO PRN ×3 (07:58→21:34)
[2017-03-23] MEDS ORDERED: INSULIN REGULAR 100 UNIT/ML ONE (09:02)
[2017-03-23] MEDS: LOSARTAN 25 MG TABLET PO SCH (09:05)
[2017-03-23] MEDS: FERROUS SULFATE 325 MG TABLET PO SCH (09:06)
[2017-03-23] MEDS: METOPROLOL SUCCINATE XL 25 MG TABLET PO SCH (09:06)
[2017-03-23] MEDS: PANTOPRAZOLE 40 MG TABLET PO SCH (09:06)
[2017-03-23] MEDS: metFORMIN 500 MG TABLET PO SCH ×2 (09:07→16:32)
[2017-03-23] MEDS: DOCUSATE SODIUM 100 MG CAPSULE PO SCH ×2 (09:07→21:35)
[2017-03-23] MEDS: CHLORHEXIDINE 0.12% ORAL RINSE 60 ML BOTTLE SWISH/SPIT SCH ×2 (09:08→21:35)
[2017-03-23] MEDS: ASPIRIN EC 325 MG TABLET PO SCH (09:16)
[2017-03-23] MEDS: ATORVASTATIN 80 MG TABLET PO SCH (21:34)
[2017-03-24] MEDS: LOSARTAN 25 MG TABLET PO SCH (09:54)
[2017-03-24] MEDS: metFORMIN 500 MG TABLET PO SCH ×2 (09:54→16:47)
[2017-03-24] MEDS: DOCUSATE SODIUM 100 MG CAPSULE PO SCH ×2 (09:54→21:31)
[2017-03-24] MEDS: METOPROLOL SUCCINATE XL 25 MG TABLET PO SCH (09:54)
[2017-03-24] MEDS: PANTOPRAZOLE 40 MG TABLET PO SCH (09:55)
[2017-03-24] MEDS: CHLORHEXIDINE 0.12% ORAL RINSE 60 ML BOTTLE SWISH/SPIT SCH ×2 (09:56→21:33)
[2017-03-24] MEDS: INSULIN REGULAR 100 UNIT/ML SUBCUT SCH ×4 (09:56→21:35)
[2017-03-24] MEDS: ASPIRIN EC 325 MG TABLET PO SCH (09:58)
[2017-03-24] MEDS: FERROUS SULFATE 325 MG TABLET PO SCH (09:59)
[2017-03-24] MEDS: ATORVASTATIN 80 MG TABLET PO SCH (21:30)
[2017-03-24] MEDS: oxyCODONE/ACETAMINOPHEN 5-325 MG TABLET PO PRN (21:31)
[2017-03-25 07:25] LABS: Basophils % 0.2 % (0.0-0.8); Eosinophils # 0.3 10*3/uL (0.0-0.87); Eosinophils % 2.8 % (0.00-10.9); Hematocrit 34.1 VOL% (42.0-52.0); Hemoglobin 11.4 GM/DL (14.0-18.0); Immature Granulocytes % 0.8 %; Immature Granulocytes Absolute 0.08 #; Lymphocytes # 1.9 10*3/uL (1.4-4.0); Lymphocytes % 20.1 % (21.2-54.2); Mean Corpuscular HGB Conc 33.4 GM/DL (32-36); Mean Corpuscular Hemoglobin 30 PG (27-34); Mean Corpuscular Volume 90.2 FL (87-102); Mean Platelet Volume 10.6 FL (9.6-12.0); Monocytes # 0.9 10*3/uL (0.11-0.8); Monocytes % 9.2 % (1.7-12.7); Neutrophils # 6.4 10*3/uL (1.4-7.4); Neutrophils % 66.9 % (38.7-73.9); Platelet Count 263 T/CUMM (130-400); Red Blood Count 3.78 MC/CUMM (3.8-5.5); Red Cell Distribution Width 12.8 % (9.3-17.3); White Blood Count 9.5 T/CUMM (4-12)
[2017-03-25 07:51] LABS: Calcium 8.2 MG/DL (8.5-10.1); Magnesium 2.3 MG/DL (1.8-2.4); Potassium 3.7 MMOL/L (3.5-5.1)
[2017-03-25 07:56] LABS: Alanine Aminotransferase 35 U/L (16-61); Albumin 2.9 G/DL (3.4-5.0); Alkaline Phosphatase 74 U/L (45-117); Aspartate Amino Transferase 25 U/L (0-37); Bilirubin,Indirect 0.7 MG/DL (0.0-1.0); Blood Urea Nitrogen 19 MG/DL (7-18); Calcium 8.5 MG/DL (8.5-10.1); Glucose 154 MG/DL (74-106); Magnesium 2.2 MG/DL (1.8-2.4); Potassium 3.6 MMOL/L (3.5-5.1); Sodium 136 MMOL/L (136-145); Total Protein 6.4 G/DL (6.4-8.3)
[2017-03-25] MEDS: LOSARTAN 25 MG TABLET PO SCH (09:49)
[2017-03-25] MEDS: DOCUSATE SODIUM 100 MG CAPSULE PO SCH ×2 (09:50→21:53)
[2017-03-25] MEDS: oxyCODONE/ACETAMINOPHEN 5-325 MG TABLET PO PRN ×2 (09:50→21:53)
[2017-03-25] MEDS: INSULIN REGULAR 100 UNIT/ML SUBCUT SCH ×4 (09:50→21:52)
[2017-03-25] MEDS: metFORMIN 500 MG TABLET PO SCH ×2 (09:50→17:18)
[2017-03-25] MEDS: PANTOPRAZOLE 40 MG TABLET PO SCH (09:50)
[2017-03-25] MEDS: ASPIRIN EC 325 MG TABLET PO SCH (09:50)
[2017-03-25] MEDS: METOPROLOL SUCCINATE XL 25 MG TABLET PO SCH (09:51)
[2017-03-25] MEDS: CHLORHEXIDINE 0.12% ORAL RINSE 60 ML BOTTLE SWISH/SPIT SCH ×2 (09:53→21:53)
[2017-03-25] MEDS: FERROUS SULFATE 325 MG TABLET PO SCH (09:53)
[2017-03-25] MEDS: ATORVASTATIN 80 MG TABLET PO SCH (21:53)
[2017-03-26 06:29] LABS: Basophils % 0.4 % (0.0-0.8); Eosinophils # 0.3 10*3/uL (0.0-0.87); Eosinophils % 3.7 % (0.00-10.9); Hematocrit 29.9 VOL% (42.0-52.0); Hemoglobin 10.2 GM/DL (14.0-18.0); Immature Granulocytes % 0.7 %; Immature Granulocytes Absolute 0.06 #; Lymphocytes # 2.4 10*3/uL (1.4-4.0); Lymphocytes % 25.7 % (21.2-54.2); Mean Corpuscular HGB Conc 34.1 GM/DL (32-36); Mean Corpuscular Hemoglobin 30 PG (27-34); Mean Corpuscular Volume 89.3 FL (87-102); Monocytes # 0.8 10*3/uL (0.11-0.8); Monocytes % 8.7 % (1.7-12.7); Neutrophils # 5.6 10*3/uL (1.4-7.4); Neutrophils % 60.8 % (38.7-73.9); Platelet Count 269 T/CUMM (130-400); Red Blood Count 3.35 MC/CUMM (3.8-5.5); Red Cell Distribution Width 12.7 % (9.3-17.3); White Blood Count 9.2 T/CUMM (4-12)
[2017-03-26 07:05] LABS: Alanine Aminotransferase 31 U/L (16-61); Albumin 2.8 G/DL (3.4-5.0); Alkaline Phosphatase 76 U/L (45-117); Aspartate Amino Transferase 19 U/L (0-37); Bilirubin,Indirect 0.5 MG/DL (0.0-1.0); Blood Urea Nitrogen 20 MG/DL (7-18); Calcium 8.3 MG/DL (8.5-10.1); Glucose 159 MG/DL (74-106); Osmolality,Calculated 278.8 MOS/KG (273-304); Potassium 3.9 MMOL/L (3.5-5.1); Sodium 137 MMOL/L (136-145); Total Protein 5.9 G/DL (6.4-8.3)
[2017-03-26] MEDS ORDERED: FUROSEMIDE 40 MG/4 ML VIAL IV ONE (08:46)
[2017-03-26] MEDS: LOSARTAN 25 MG TABLET PO SCH (10:39)
[2017-03-26] MEDS: PANTOPRAZOLE 40 MG TABLET PO SCH (10:39)
[2017-03-26] MEDS: DOCUSATE SODIUM 100 MG CAPSULE PO SCH ×2 (10:40→21:45)
[2017-03-26] MEDS: ASPIRIN EC 325 MG TABLET PO SCH (10:40)
[2017-03-26] MEDS: FERROUS SULFATE 325 MG TABLET PO SCH (10:40)
[2017-03-26] MEDS: METOPROLOL SUCCINATE XL 25 MG TABLET PO SCH (10:40)
[2017-03-26] MEDS: metFORMIN 500 MG TABLET PO SCH ×2 (10:40→17:46)
[2017-03-26] MEDS: CHLORHEXIDINE 0.12% ORAL RINSE 60 ML BOTTLE SWISH/SPIT SCH ×2 (10:40→21:46)
[2017-03-26] MEDS: INSULIN REGULAR 100 UNIT/ML SUBCUT SCH ×4 (12:17→21:45)
[2017-03-26] MEDS: ATORVASTATIN 80 MG TABLET PO SCH (21:45)
[2017-03-26] MEDS: oxyCODONE/ACETAMINOPHEN 5-325 MG TABLET PO PRN (21:56)
[2017-03-27 05:23] LABS: Calcium 8.4 MG/DL (8.5-10.1); Potassium 3.7 MMOL/L (3.5-5.1)
[2017-03-27] MEDS: METOPROLOL SUCCINATE XL 25 MG TABLET PO SCH (09:14)
[2017-03-27] MEDS: LOSARTAN 25 MG TABLET PO SCH (09:14)
[2017-03-27] MEDS: DOCUSATE SODIUM 100 MG CAPSULE PO SCH (09:14)
[2017-03-27] MEDS: metFORMIN 500 MG TABLET PO SCH (09:14)
[2017-03-27] MEDS: ASPIRIN EC 325 MG TABLET PO SCH (09:14)
[2017-03-27] MEDS: FERROUS SULFATE 325 MG TABLET PO SCH (09:14)
[2017-03-27] MEDS: PANTOPRAZOLE 40 MG TABLET PO SCH (09:14)
[2017-03-27] MEDS: INSULIN REGULAR 100 UNIT/ML SUBCUT SCH ×2 (09:15→11:40)
[2017-03-27] MEDS: CHLORHEXIDINE 0.12% ORAL RINSE 60 ML BOTTLE SWISH/SPIT SCH (09:19)
[2017-03-27 11:41] VITALS: BP 117/80
== END 2017-03-27 15:12 | disposition home health service (06) | DRG 234 ==
LOC: N.ED 04:35 → N.ICU 05:26 → N.EDINP 06:21 → N.ICU 07:04 → N.TELES 03-18 13:30 → N.CVR 03-20 08:24 → N.TELES 03-21 14:19
PROVIDERS: ADMIT Internal Medicine Interventional Cardiology; ATTEND Internal Medicine Interventional Cardiology
PROC: CLCCHCL (ICD-10-PCS; 2017-03-15 05:45)

== ENCOUNTER 2017-04-27 12:41 | Inpatient (IN) ==
[2017-04-27] MEDS ORDERED: ACETAMINOPHEN 325 MG TABLET PO PRN (14:16)
[2017-04-27] MEDS ORDERED: ONDANSETRON 4 MG/2 ML VIAL IV PRN (14:16)
[2017-04-27] MEDS ORDERED: GLUCAGON 1 MG VIAL IM PRN (14:21)
[2017-04-27] MEDS ORDERED: DEXTROSE 50% 25 GM/50 ML VIAL IV PRN (14:21)
[2017-04-27] MEDS ORDERED: INFLUENZA VIRUS VACCINE 0.5 ML SYRINGE IM ONE (15:49)
[2017-04-27] MEDS ORDERED: PNEUMOCOCCAL VACCINE (23 VALENT) 0.5 ML VIAL IM ONE (15:49)
[2017-04-27] MEDS ORDERED: ENOXAPARIN 40 MG/0.4 ML SYRINGE SUBCUT SCH (16:00)
[2017-04-27] MEDS ORDERED: metFORMIN 500 MG TABLET PO SCH (17:00)
[2017-04-27 17:22] LABS: Basophils # 0.1 10*3/uL (0.0-0.2); Basophils % 0.8 % (0.0-0.8); Eosinophils % 0.2 % (0.00-10.9); Hematocrit 37.7 VOL% (42.0-52.0); Hemoglobin 11.9 GM/DL (14.0-18.0); Immature Granulocytes % 0.4 %; Immature Granulocytes Absolute 0.05 #; Lymphocytes # 2.3 10*3/uL (1.4-4.0); Lymphocytes % 17.5 % (21.2-54.2); Mean Corpuscular HGB Conc 31.6 GM/DL (32-36); Mean Corpuscular Hemoglobin 29 PG (27-34); Mean Corpuscular Volume 91.1 FL (87-102); Mean Platelet Volume 11.4 FL (9.6-12.0); Monocytes # 0.9 10*3/uL (0.11-0.8); Monocytes % 6.6 % (1.7-12.7); Neutrophils # 9.9 10*3/uL (1.4-7.4); Neutrophils % 74.5 % (38.7-73.9); Platelet Count 284 T/CUMM (130-400); Red Blood Count 4.14 MC/CUMM (3.8-5.5); Red Cell Distribution Width 13.2 % (9.3-17.3); White Blood Count 13.3 T/CUMM (4-12)
[2017-04-27] MEDS: INSULIN LISPRO 100 UNIT/ML SUBCUT SCH ×2 (17:24→21:36)
[2017-04-27 17:35] LABS: PT Patient Result 10.4 SECS
[2017-04-27] MEDS ORDERED: POTASSIUM CHLORIDE RIDER 10 MEQ in PREMIX 1 EACH IV PRN (17:54)
[2017-04-27] MEDS ORDERED: MAGNESIUM SULF RIDER 2 GM in PREMIX 1 EACH IV PRN (17:54)
[2017-04-27 18:00] LABS: CKMB % 4.8 %
[2017-04-27 18:14] LABS: Albumin 3.5 G/DL (3.4-5.0); Bilirubin,Total 0.9 MG/DL (0.2-1.0); Calcium 8.8 MG/DL (8.5-10.1); Osmolality,Calculated 280.8 MOS/KG (273-304); Total Protein 7.7 G/DL (6.4-8.3); Troponin I Only 24.3 NG/ML (0.00-0.045)
[2017-04-27] MEDS ORDERED: ASPIRIN 325 MG TABLET PO ONE (18:25)
[2017-04-27] MEDS ORDERED: FUROSEMIDE 40 MG/4 ML VIAL IV ONE (18:34)
[2017-04-27] MEDS ORDERED: TIROFIBAN IV ONE (18:35)
[2017-04-27] MEDS ORDERED: FUROSEMIDE 40 MG/4 ML VIAL ONE (18:39)
[2017-04-27] MEDS ORDERED: ENOXAPARIN 60 MG/0.6 ML SYRINGE SUBCUT ONE (18:39)
[2017-04-27] MEDS ORDERED: ENOXAPARIN 60 MG/0.6 ML SYRINGE ONE (18:39)
[2017-04-27] MEDS ORDERED: ASPIRIN EC 325 MG TABLET PO ONE (18:58)
[2017-04-27] MEDS ORDERED: NITROGLYCERIN 2% OINT 1 INCH/GM PACK TOP ONE (18:58)
[2017-04-27] MEDS: NITROGLYCERIN 2% OINT 1 INCH/GM PACK TOP SCH (19:00)
[2017-04-27] MEDS: TIROFIBAN 5,000 MCG/100 ML PREMIX IV SCH (20:44)
[2017-04-27] MEDS: DOCUSATE SODIUM 100 MG CAPSULE PO SCH (20:44)
[2017-04-27] MEDS: ATORVASTATIN 80 MG TABLET PO SCH (20:45)
[2017-04-27] MEDS: CARVEDILOL 6.25 MG TABLET PO SCH (20:45)
[2017-04-28] MEDS: NITROGLYCERIN 2% OINT 1 INCH/GM PACK TOP SCH ×3 (00:10→13:00)
[2017-04-28 06:16] LABS: Basophils # 0.1 10*3/uL (0.0-0.2); Basophils % 0.7 % (0.0-0.8); Eosinophils % 0.3 % (0.00-10.9); Hematocrit 32.4 VOL% (42.0-52.0); Hemoglobin 10.9 GM/DL (14.0-18.0); Immature Granulocytes % 0.5 %; Immature Granulocytes Absolute 0.06 #; Lymphocytes # 2.4 10*3/uL (1.4-4.0); Mean Corpuscular HGB Conc 33.6 GM/DL (32-36); Mean Corpuscular Hemoglobin 30 PG (27-34); Mean Corpuscular Volume 87.8 FL (87-102); Mean Platelet Volume 11.5 FL (9.6-12.0); Monocytes # 1.1 10*3/uL (0.11-0.8); Monocytes % 9.4 % (1.7-12.7); Neutrophils # 7.9 10*3/uL (1.4-7.4); Neutrophils % 68.1 % (38.7-73.9); Platelet Count 248 T/CUMM (130-400); Red Blood Count 3.69 MC/CUMM (3.8-5.5); Red Cell Distribution Width 13.2 % (9.3-17.3); White Blood Count 11.5 T/CUMM (4-12)
[2017-04-28] MEDS ORDERED: diphenhydrAMINE CAP 25 MG CAPSULE PO ONE (06:30)
[2017-04-28] MEDS ORDERED: DIAZEPAM 5 MG TABLET PO ONE (06:30)
[2017-04-28 06:51] LABS: CKMB % 4.1 %; Calcium 8.2 MG/DL (8.5-10.1); Potassium 3.1 MMOL/L (3.5-5.1)
[2017-04-28 06:54] LABS: Troponin I Only 25.8 NG/ML (0.00-0.045)
[2017-04-28] MEDS: TIROFIBAN 5,000 MCG/100 ML PREMIX IV SCH (07:28)
[2017-04-28] MEDS: INSULIN LISPRO 100 UNIT/ML SUBCUT SCH ×4 (08:20→20:54)
[2017-04-28] MEDS: CARVEDILOL 6.25 MG TABLET PO SCH (08:20)
[2017-04-28] MEDS: PANTOPRAZOLE 40 MG TABLET PO SCH (08:20)
[2017-04-28] MEDS: DOCUSATE SODIUM 100 MG CAPSULE PO SCH ×2 (08:35→20:53)
[2017-04-28] MEDS ORDERED: LIDOCAINE 1% 20 ML VIAL ONE (08:47)
[2017-04-28] MEDS ORDERED: ASPIRIN 325 MG TABLET PO SCH (09:00)
[2017-04-28] MEDS ORDERED: HYDROmorphone 2 MG/1 ML VIAL ONE (09:43)
[2017-04-28] MEDS ORDERED: MIDAZOLAM 2 MG/2 ML VIAL ONE (09:44)
[2017-04-28] MEDS ORDERED: ENOXAPARIN 60 MG/0.6 ML SYRINGE ONE (10:08)
[2017-04-28] MEDS ORDERED: DOPamine 800 MG/250 ML PREMIX IV ONE (10:46)
[2017-04-28] MEDS ORDERED: TICAGRELOR 90 MG TABLET ONE (11:14)
[2017-04-28] MEDS ORDERED: NITROGLYCERIN SL 0.4 MG TABLET SL PRN (11:14)
[2017-04-28 13:15] LABS: CKMB % 3.9 %; Troponin I Only 21.8 NG/ML (0.00-0.045)
[2017-04-28] MEDS: METOPROLOL TARTRATE 25 MG TABLET PO SCH ×2 (15:45→20:53)
[2017-04-28] MEDS ORDERED: FUROSEMIDE 40 MG/4 ML VIAL IV ONE (16:25)
[2017-04-28] MEDS: CLORAZEPATE 7.5 MG TABLET PO PRN ×2 (16:46→22:17)
[2017-04-28] MEDS: POTASSIUM CHLORIDE 20 MEQ TABLET PO PRN ×2 (20:52→22:59)
[2017-04-28] MEDS: TICAGRELOR 90 MG TABLET PO SCH (20:53)
[2017-04-28] MEDS: ATORVASTATIN 80 MG TABLET PO SCH (20:53)
[2017-04-28] MEDS ORDERED: traZODone 50 MG TABLET PO ONE (23:30)
[2017-04-29 06:44] LABS: Basophils # 0.1 10*3/uL (0.0-0.2); Basophils % 0.8 % (0.0-0.8); Eosinophils % 0.2 % (0.00-10.9); Hematocrit 35.2 VOL% (42.0-52.0); Hemoglobin 11.5 GM/DL (14.0-18.0); Immature Granulocytes % 0.3 %; Immature Granulocytes Absolute 0.04 #; Lymphocytes # 1.8 10*3/uL (1.4-4.0); Lymphocytes % 14.6 % (21.2-54.2); Mean Corpuscular HGB Conc 32.7 GM/DL (32-36); Mean Corpuscular Hemoglobin 29 PG (27-34); Mean Corpuscular Volume 88.4 FL (87-102); Mean Platelet Volume 11.9 FL (9.6-12.0); Monocytes # 1.3 10*3/uL (0.11-0.8); Monocytes % 10.4 % (1.7-12.7); Neutrophils % 73.7 % (38.7-73.9); Platelet Count 254 T/CUMM (130-400); Red Blood Count 3.98 MC/CUMM (3.8-5.5); Red Cell Distribution Width 13.2 % (9.3-17.3); White Blood Count 12.3 T/CUMM (4-12)
[2017-04-29 07:11] LABS: Calcium 8.5 MG/DL (8.5-10.1); Potassium 3.5 MMOL/L (3.5-5.1)
[2017-04-29 07:22] LABS: CKMB % 2.8 %; Calcium 8.3 MG/DL (8.5-10.1); Osmolality,Calculated 279.8 MOS/KG (273-304); Potassium 3.6 MMOL/L (3.5-5.1)
[2017-04-29 07:24] LABS: Troponin I Only 25.4 NG/ML (0.00-0.045)
[2017-04-29] MEDS: METOPROLOL TARTRATE 25 MG TABLET PO SCH (08:13)
[2017-04-29] MEDS: ASPIRIN EC 81 MG TABLET PO SCH (08:13)
[2017-04-29] MEDS: DOCUSATE SODIUM 100 MG CAPSULE PO SCH ×2 (08:13→20:34)
[2017-04-29] MEDS: POTASSIUM CHLORIDE 20 MEQ TABLET PO PRN (08:13)
[2017-04-29] MEDS: PANTOPRAZOLE 40 MG TABLET PO SCH (08:13)
[2017-04-29] MEDS: TICAGRELOR 90 MG TABLET PO SCH ×2 (08:13→20:34)
[2017-04-29] MEDS: CLORAZEPATE 7.5 MG TABLET PO PRN ×2 (08:13→20:33)
[2017-04-29] MEDS: INSULIN LISPRO 100 UNIT/ML SUBCUT SCH ×4 (08:24→21:30)
[2017-04-29] MEDS ORDERED: FUROSEMIDE 40 MG/4 ML VIAL IV ONE (09:26)
[2017-04-29] MEDS ORDERED: CARVEDILOL 3.125 MG TABLET PO ONE (09:55)
[2017-04-29] MEDS: SPIRONOLACTONE 25 MG TABLET PO SCH (10:19)
[2017-04-29] MEDS ORDERED: ALPRAZolam 0.25 MG TABLET PO PRN (11:59)
[2017-04-29] MEDS: FUROSEMIDE 40 MG/4 ML VIAL IV SCH (16:25)
[2017-04-29] MEDS: CARVEDILOL 3.125 MG TABLET PO SCH (20:34)
[2017-04-29] MEDS: ATORVASTATIN 80 MG TABLET PO SCH (20:34)
[2017-04-29] MEDS: traZODone 50 MG TABLET PO SCH (20:34)
[2017-04-30 05:22] LABS: Basophils # 0.1 10*3/uL (0.0-0.2); Basophils % 0.5 % (0.0-0.8); Eosinophils # 0.1 10*3/uL (0.0-0.87); Hematocrit 32.1 VOL% (42.0-52.0); Hemoglobin 10.8 GM/DL (14.0-18.0); Immature Granulocytes % 0.5 %; Immature Granulocytes Absolute 0.05 #; Lymphocytes # 1.4 10*3/uL (1.4-4.0); Lymphocytes % 15.2 % (21.2-54.2); Mean Corpuscular HGB Conc 33.6 GM/DL (32-36); Mean Corpuscular Hemoglobin 29 PG (27-34); Mean Corpuscular Volume 86.8 FL (87-102); Mean Platelet Volume 11.6 FL (9.6-12.0); Monocytes # 0.9 10*3/uL (0.11-0.8); Monocytes % 9.8 % (1.7-12.7); Neutrophils # 6.8 10*3/uL (1.4-7.4); Platelet Count 243 T/CUMM (130-400); Red Cell Distribution Width 13.2 % (9.3-17.3); White Blood Count 9.3 T/CUMM (4-12)
[2017-04-30] MEDS: CLORAZEPATE 7.5 MG TABLET PO PRN ×2 (05:31→20:44)
[2017-04-30 05:46] LABS: Calcium 8.1 MG/DL (8.5-10.1); Osmolality,Calculated 288.5 MOS/KG (273-304)
[2017-04-30] MEDS ORDERED: POTASSIUM CHLORIDE 20 MEQ TABLET PO ONE (08:33)
[2017-04-30] MEDS: INSULIN LISPRO 100 UNIT/ML SUBCUT SCH ×4 (09:18→21:11)
[2017-04-30] MEDS: CARVEDILOL 3.125 MG TABLET PO SCH ×2 (09:19→19:17)
[2017-04-30] MEDS: SPIRONOLACTONE 25 MG TABLET PO SCH (09:19)
[2017-04-30] MEDS: PANTOPRAZOLE 40 MG TABLET PO SCH (09:19)
[2017-04-30] MEDS: TICAGRELOR 90 MG TABLET PO SCH ×2 (09:19→20:44)
[2017-04-30] MEDS: ASPIRIN EC 81 MG TABLET PO SCH (09:19)
[2017-04-30] MEDS: DOCUSATE SODIUM 100 MG CAPSULE PO SCH ×2 (09:19→20:43)
[2017-04-30] MEDS: LISINOPRIL 2.5 MG TABLET PO SCH ×2 (09:19→20:43)
[2017-04-30] MEDS: FUROSEMIDE 40 MG/4 ML VIAL IV SCH ×2 (09:20→19:16)
[2017-04-30] MEDS ORDERED: POTASSIUM CHLORIDE 20 MEQ TABLET PO SCH (11:00)
[2017-04-30] MEDS: ATORVASTATIN 80 MG TABLET PO SCH (20:44)
[2017-04-30] MEDS: POTASSIUM CHLORIDE 20 MEQ TABLET PO SCH (20:44)
[2017-04-30] MEDS: traZODone 50 MG TABLET PO SCH (20:44)
[2017-05-01 06:00] LABS: Basophils # 0.1 10*3/uL (0.0-0.2); Basophils % 0.7 % (0.0-0.8); Eosinophils # 0.2 10*3/uL (0.0-0.87); Eosinophils % 2.7 % (0.00-10.9); Hematocrit 33.8 VOL% (42.0-52.0); Hemoglobin 10.9 GM/DL (14.0-18.0); Immature Granulocytes % 0.5 %; Immature Granulocytes Absolute 0.04 #; Lymphocytes # 1.6 10*3/uL (1.4-4.0); Lymphocytes % 18.4 % (21.2-54.2); Mean Corpuscular HGB Conc 32.2 GM/DL (32-36); Mean Corpuscular Hemoglobin 29 PG (27-34); Mean Corpuscular Volume 88.9 FL (87-102); Mean Platelet Volume 11.1 FL (9.6-12.0); Monocytes # 0.8 10*3/uL (0.11-0.8); Monocytes % 8.8 % (1.7-12.7); Neutrophils # 5.9 10*3/uL (1.4-7.4); Neutrophils % 68.9 % (38.7-73.9); Platelet Count 276 T/CUMM (130-400); Red Cell Distribution Width 13.1 % (9.3-17.3); White Blood Count 8.6 T/CUMM (4-12)
[2017-05-01 06:29] LABS: Calcium 8.8 MG/DL (8.5-10.1); Osmolality,Calculated 283.7 MOS/KG (273-304); Potassium 3.3 MMOL/L (3.5-5.1)
[2017-05-01] MEDS: CLORAZEPATE 7.5 MG TABLET PO PRN ×2 (09:40→22:06)
[2017-05-01] MEDS: SPIRONOLACTONE 25 MG TABLET PO SCH (09:40)
[2017-05-01] MEDS: PANTOPRAZOLE 40 MG TABLET PO SCH (09:40)
[2017-05-01] MEDS: CARVEDILOL 3.125 MG TABLET PO SCH ×2 (09:40→17:21)
[2017-05-01] MEDS: TICAGRELOR 90 MG TABLET PO SCH ×2 (09:40→22:06)
[2017-05-01] MEDS: ASPIRIN EC 81 MG TABLET PO SCH (09:40)
[2017-05-01] MEDS: INSULIN LISPRO 100 UNIT/ML SUBCUT SCH ×4 (09:41→22:11)
[2017-05-01] MEDS: POTASSIUM CHLORIDE 20 MEQ TABLET PO SCH ×2 (09:41→22:05)
[2017-05-01] MEDS: LISINOPRIL 2.5 MG TABLET PO SCH ×2 (09:41→22:05)
[2017-05-01] MEDS: DOCUSATE SODIUM 100 MG CAPSULE PO SCH ×2 (09:41→22:05)
[2017-05-01] MEDS: FUROSEMIDE 40 MG/4 ML VIAL IV SCH (09:41)
[2017-05-01] MEDS: FUROSEMIDE 40 MG TABLET PO SCH (17:22)
[2017-05-01] MEDS: ATORVASTATIN 80 MG TABLET PO SCH (22:05)
[2017-05-01] MEDS: traZODone 50 MG TABLET PO SCH (22:06)
[2017-05-02 05:38] LABS: Basophils # 0.1 10*3/uL (0.0-0.2); Basophils % 0.6 % (0.0-0.8); Eosinophils # 0.3 10*3/uL (0.0-0.87); Eosinophils % 3.5 % (0.00-10.9); Hematocrit 32.1 VOL% (42.0-52.0); Hemoglobin 10.7 GM/DL (14.0-18.0); Immature Granulocytes % 0.4 %; Immature Granulocytes Absolute 0.03 #; Lymphocytes # 2.1 10*3/uL (1.4-4.0); Lymphocytes % 25.4 % (21.2-54.2); Mean Corpuscular HGB Conc 33.3 GM/DL (32-36); Mean Corpuscular Hemoglobin 29 PG (27-34); Mean Platelet Volume 10.8 FL (9.6-12.0); Monocytes # 0.8 10*3/uL (0.11-0.8); Monocytes % 9.2 % (1.7-12.7); Neutrophils # 4.9 10*3/uL (1.4-7.4); Neutrophils % 60.9 % (38.7-73.9); Platelet Count 303 T/CUMM (130-400); Red Blood Count 3.69 MC/CUMM (3.8-5.5); Red Cell Distribution Width 13.1 % (9.3-17.3); White Blood Count 8.1 T/CUMM (4-12)
[2017-05-02 05:41] LABS: Calcium 8.2 MG/DL (8.5-10.1); Osmolality,Calculated 283.5 MOS/KG (273-304); Potassium 3.4 MMOL/L (3.5-5.1)
[2017-05-02] MEDS: POTASSIUM CHLORIDE 20 MEQ TABLET PO SCH (08:44)
[2017-05-02] MEDS: TICAGRELOR 90 MG TABLET PO SCH ×2 (08:44→18:12)
[2017-05-02] MEDS: ASPIRIN EC 81 MG TABLET PO SCH (08:44)
[2017-05-02] MEDS: PANTOPRAZOLE 40 MG TABLET PO SCH (08:44)
[2017-05-02] MEDS: DOCUSATE SODIUM 100 MG CAPSULE PO SCH (08:44)
[2017-05-02] MEDS: CARVEDILOL 3.125 MG TABLET PO SCH ×2 (08:44→18:12)
[2017-05-02] MEDS: FUROSEMIDE 40 MG TABLET PO SCH ×2 (08:44→18:11)
[2017-05-02] MEDS: LISINOPRIL 2.5 MG TABLET PO SCH (08:44)
[2017-05-02] MEDS: SPIRONOLACTONE 25 MG TABLET PO SCH (08:44)
[2017-05-02] MEDS: INSULIN LISPRO 100 UNIT/ML SUBCUT SCH ×3 (08:46→18:12)
[2017-05-02] MEDS: CLORAZEPATE 7.5 MG TABLET PO PRN (08:48)
[2017-05-02 17:32] VITALS: BP 93/65
== END 2017-05-02 19:29 | disposition home or self-care (01) | DRG 246 ==
LOC: N.TELES → N.CC 19:13 → N.TELEN 04-29 11:00 → N.CC 04-29 11:06 → N.TELEN 04-29 11:48
PROVIDERS: ADMIT Family Medicine; ATTEND Family Medicine

== ENCOUNTER 2017-05-24 15:42 | Inpatient (IN) ==
[2017-05-24 18:01] LABS: Basophils # 0.1 10*3/uL (0.0-0.2); Basophils % 0.7 % (0.0-0.8); Eosinophils # 0.1 10*3/uL (0.0-0.87); Eosinophils % 1.3 % (0.00-10.9); Hematocrit 41.3 VOL% (42.0-52.0); Hemoglobin 13.4 GM/DL (14.0-18.0); Immature Granulocytes % 0.4 %; Immature Granulocytes Absolute 0.04 #; Lymphocytes % 21.2 % (21.2-54.2); Mean Corpuscular HGB Conc 32.4 GM/DL (32-36); Mean Corpuscular Hemoglobin 28 PG (27-34); Mean Corpuscular Volume 87.5 FL (87-102); Mean Platelet Volume 11.1 FL (9.6-12.0); Monocytes # 0.6 10*3/uL (0.11-0.8); Neutrophils # 6.4 10*3/uL (1.4-7.4); Neutrophils % 69.4 % (38.7-73.9); Platelet Count 220 T/CUMM (130-400); Red Blood Count 4.72 MC/CUMM (3.8-5.5); Red Cell Distribution Width 13.1 % (9.3-17.3); White Blood Count 9.2 T/CUMM (4-12)
[2017-05-24 18:11] LABS: PT Patient Result 10.4 SECS
[2017-05-24 18:23] LABS: Alanine Aminotransferase 31 U/L (16-61); Alkaline Phosphatase 79 U/L (45-117); Aspartate Amino Transferase 24 U/L (0-37); Blood Urea Nitrogen 31 MG/DL (7-18); Calcium 9.6 MG/DL (8.5-10.1); Glucose 123 MG/DL (74-106); Osmolality,Calculated 275.2 MOS/KG (273-304); Potassium 4.1 MMOL/L (3.5-5.1); Sodium 134 MMOL/L (136-145)
[2017-05-24 18:29] LABS: Troponin I Only 0.461 NG/ML (0.00-0.045)
[2017-05-24 21:41] LABS: Apearance,Urine CLEAR (Clear); Bilirubin,Urine Negative (Negative); Blood, Urine Negative (Negative); Glucose,Urine (UA) Negative (Negative); Ketones,Urine Negative (Negative); Mucus,Urine Occasional /LPF (Occasional); Nitrite,Urine Negative (Negative); Protein,Urine Negative; RBC,Urine <1 /HPF (0-4); Squamous Epithelial Cell,Urine Occasional /HPF (0-10); Urine Color Yellow (Yellow); Urine Specific Gravity 1.013 (1.001-1.035); Urine Urobilinogen < 2.0 EU/DL (0.2-1.0); WBC,Urine 1 /HPF (0-6)
[2017-05-24] MEDS ORDERED: GLUCAGON 1 MG VIAL IM PRN (21:55)
[2017-05-24] MEDS ORDERED: ONDANSETRON 4 MG/2 ML VIAL IV PRN (21:55)
[2017-05-24] MEDS ORDERED: SPIRONOLACTONE 25 MG TABLET PO SCH (21:55)
[2017-05-24] MEDS ORDERED: LISINOPRIL 2.5 MG TABLET PO SCH (21:55)
[2017-05-24] MEDS ORDERED: DEXTROSE 50% 25 GM/50 ML VIAL IV PRN (21:55)
[2017-05-24] MEDS ORDERED: ALPRAZolam 0.25 MG TABLET PO PRN (22:02)
[2017-05-25] MEDS: TICAGRELOR 90 MG TABLET PO SCH ×3 (00:34→21:17)
[2017-05-25] MEDS: CARVEDILOL 3.125 MG TABLET PO SCH ×2 (00:35→09:55)
[2017-05-25] MEDS: INSULIN REGULAR 100 UNIT/ML SUBCUT SCH ×5 (00:45→21:17)
[2017-05-25 05:37] LABS: Calcium 8.9 MG/DL (8.5-10.1); Osmolality,Calculated 277.8 MOS/KG (273-304); Potassium 3.8 MMOL/L (3.5-5.1)
[2017-05-25 05:42] LABS: Troponin I Only 0.379 NG/ML (0.00-0.045)
[2017-05-25] MEDS ORDERED: SPIRONOLACTONE 25 MG TABLET PO SCH (09:00)
[2017-05-25] MEDS: DOCUSATE SODIUM 100 MG CAPSULE PO SCH (09:55)
[2017-05-25] MEDS: ASPIRIN EC 81 MG TABLET PO SCH (09:55)
[2017-05-25] MEDS: PANTOPRAZOLE 40 MG TABLET PO SCH (09:55)
[2017-05-25] MEDS: glipiZIDE 5 MG TABLET PO SCH ×2 (09:55→16:34)
[2017-05-25] MEDS: LISINOPRIL 2.5 MG TABLET PO SCH (10:41)
[2017-05-25] MEDS: FUROSEMIDE 40 MG TABLET PO SCH ×2 (10:41→16:35)
[2017-05-25] MEDS: ATORVASTATIN 80 MG TABLET PO SCH (21:17)
[2017-05-25] MEDS: METOPROLOL SUCCINATE XL 25 MG TABLET PO SCH (21:18)
[2017-05-26 06:12] LABS: Calcium 8.6 MG/DL (8.5-10.1); Osmolality,Calculated 282.4 MOS/KG (273-304); Potassium 3.9 MMOL/L (3.5-5.1)
[2017-05-26 07:22] LABS: Basophils # 0.1 10*3/uL (0.0-0.2); Basophils % 1.1 % (0.0-0.8); Eosinophils # 0.2 10*3/uL (0.0-0.87); Eosinophils % 2.7 % (0.00-10.9); Hematocrit 36.5 VOL% (42.0-52.0); Hemoglobin 11.9 GM/DL (14.0-18.0); Immature Granulocytes % 0.3 %; Immature Granulocytes Absolute 0.02 #; Lymphocytes # 2.3 10*3/uL (1.4-4.0); Lymphocytes % 34.5 % (21.2-54.2); Mean Corpuscular HGB Conc 32.6 GM/DL (32-36); Mean Corpuscular Hemoglobin 28 PG (27-34); Mean Corpuscular Volume 87.1 FL (87-102); Mean Platelet Volume 11.5 FL (9.6-12.0); Monocytes # 0.5 10*3/uL (0.11-0.8); Monocytes % 7.1 % (1.7-12.7); Neutrophils # 3.6 10*3/uL (1.4-7.4); Neutrophils % 54.3 % (38.7-73.9); Platelet Count 187 T/CUMM (130-400); Red Blood Count 4.19 MC/CUMM (3.8-5.5); Red Cell Distribution Width 13.2 % (9.3-17.3); White Blood Count 6.7 T/CUMM (4-12)
[2017-05-26] MEDS: TICAGRELOR 90 MG TABLET PO SCH ×2 (09:04→20:52)
[2017-05-26] MEDS: glipiZIDE 5 MG TABLET PO SCH ×2 (09:04→17:17)
[2017-05-26] MEDS: METOPROLOL SUCCINATE XL 25 MG TABLET PO SCH ×2 (09:04→20:52)
[2017-05-26] MEDS: FUROSEMIDE 20 MG TABLET PO SCH ×2 (09:04→17:17)
[2017-05-26] MEDS: ASPIRIN EC 81 MG TABLET PO SCH (09:04)
[2017-05-26] MEDS: LISINOPRIL 2.5 MG TABLET PO SCH (09:04)
[2017-05-26] MEDS: DOCUSATE SODIUM 100 MG CAPSULE PO SCH (09:04)
[2017-05-26] MEDS: PANTOPRAZOLE 40 MG TABLET PO SCH (09:04)
[2017-05-26] MEDS: SPIRONOLACTONE 50 MG TABLET PO SCH (09:04)
[2017-05-26] MEDS: INSULIN REGULAR 100 UNIT/ML SUBCUT SCH ×4 (09:05→20:04)
[2017-05-26] MEDS: FUROSEMIDE 40 MG TABLET PO SCH (09:33)
[2017-05-26] MEDS: ATORVASTATIN 80 MG TABLET PO SCH (20:52)
[2017-05-27] MEDS: INSULIN REGULAR 100 UNIT/ML SUBCUT SCH ×3 (07:58→18:09)
[2017-05-27] MEDS: glipiZIDE 5 MG TABLET PO SCH ×2 (08:57→18:16)
[2017-05-27] MEDS: DOCUSATE SODIUM 100 MG CAPSULE PO SCH (08:57)
[2017-05-27] MEDS: METOPROLOL SUCCINATE XL 25 MG TABLET PO SCH (08:57)
[2017-05-27] MEDS: TICAGRELOR 90 MG TABLET PO SCH (08:57)
[2017-05-27] MEDS: ASPIRIN EC 81 MG TABLET PO SCH (08:57)
[2017-05-27] MEDS: SPIRONOLACTONE 50 MG TABLET PO SCH (08:57)
[2017-05-27] MEDS: LISINOPRIL 2.5 MG TABLET PO SCH (08:57)
[2017-05-27] MEDS: FUROSEMIDE 20 MG TABLET PO SCH (08:57)
[2017-05-27] MEDS: PANTOPRAZOLE 40 MG TABLET PO SCH (08:58)
[2017-05-27] MEDS ORDERED: FUROSEMIDE 40 MG TABLET PO SCH (16:00)
[2017-05-27 16:53] VITALS: BP 95/59
== END 2017-05-27 18:57 | disposition home health service (06) | DRG 281 ==
LOC: N.ED 15:42 → N.EDINP 19:45 → N.TELEN 20:22
PROVIDERS: ADMIT Family Medicine; ATTEND Family Medicine